=== PATIENT | male | born 1990 | race African-American/Black ===

== ENCOUNTER 2021-08-22 00:30 | Inpatient (IN) | payer MEDICAID ==
[~2021-08-22] VITALS: Ht 193 cm; Wt 95.3 kg
[2021-08-22] MEDS ORDERED: DIAZEPAM 5 MG/ML 2ML CPJ IV ONE (01:00)
[2021-08-22] MEDS ORDERED: FOLIC ACID 1 MG, THIAMINE HCL 100 MG, MVI, ADULT NO.1 10 ML in DEXTROSE 5% WATER 1,000 ML IV ONE (01:00)
[2021-08-22 01:39] LABS: BASOPHILS % 0.7 % (0.0-2.0); EOSINOPHILS % 1.5 % (0.0-5.0); HEMATOCRIT. 44.3 % (42.0-52.0); HEMOGLOBIN. 14.4 g/dL (14.0-18.0); LYMPHOCYTES % 24.5 % (20.0-50.0); MEAN CORPUSCULAR HEMOGLOBIN 24.1 pg (28.0-32.0); MEAN CORPUSCULAR VOLUME 73.9 fL (80.0-94.0); MEAN PLATELET VOLUME 8.9 fl (7.4-10.4); MONOCYTES % 6.5 % (2.0-8.0); NEUTROPHILS % 66.8 % (40.0-76.0); PLATELET 108 x1000/uL (130-400); RED BLOOD CELL COUNT 5.99 mill/uL (4.7-6.1); RED CELL DISTRIBUTION WIDTH 15.4 % (11.6-14.6)
[2021-08-22 01:46] LABS: CHLORIDE 103 mEq/L (98-107)
[2021-08-22 01:54] LABS: CREATINE KINASE 530 IU/L (39-308)
[2021-08-22 01:55] LABS: ETHANOL BLOOD < 10 mg/dL; PHOSPHORUS 3.3 mg/dL (2.5-4.9)
[2021-08-22] MEDS ORDERED: DIAZEPAM 5 MG/ML 2ML CPJ IV NR (02:00)
[2021-08-22 02:40] LABS: CLARITY URINE CLEAR (CLEAR); COLOR URINE YELLOW (YELLOW); KETONES URINE 1+ (NEGATIVE); LEUKOCYTE ESTERASE URINE NEGATIVE (NEGATIVE); NITRITE URINE NEGATIVE (NEGATIVE); OCCULT BLOOD URINE NEGATIVE (NEGATIVE); PH URINE 6.5 (4.5-8.0); PROTEIN URINE NEGATIVE (NEGATIVE); SPECIFIC GRAVITY URINE 1.011 (1.005-1.030); UROBILINOGEN URINE 0.2 E.U./dL (0.2-1.0)
[2021-08-22 02:52] LABS: *AMPHETAMINES SCREEN URINE NEGATIVE (NEGATIVE); *BARBITURATES SCREEN URINE NEGATIVE (NEGATIVE); *BENZODIAZEPINES SCREEN URINE NEGATIVE (NEGATIVE); *COCAINE SCREEN URINE NEGATIVE (NEGATIVE)
[2021-08-22 02:53] LABS: CANNABINOID URINE SCREEN NEGATIVE (NEGATIVE); METHADONE URINE SCREEN NEGATIVE (NEGATIVE); OPIATES URINE SCREEN NEGATIVE (NEGATIVE); PHENCYCLIDINE URINE SCREEN NEGATIVE (NEGATIVE)
[2021-08-22 08:56] VITALS: BP 150/101
[2021-08-22 10:08] VITALS: BP 150/101
[2021-08-22] MEDS ORDERED: HYDROCODONE/ACETAMINOPHEN 5/325MG TABLET PO PRN (10:15)
[2021-08-22] MEDS ORDERED: DOCUSATE SODIUM 100MG CAPSULE PO PRN (10:15)
[2021-08-22] MEDS ORDERED: IPRATROPIUM/ALBUTEROL 0.5-3(2.5)MG/3ML NEB NEB PRN (10:15)
[2021-08-22] MEDS ORDERED: ACETAMINOPHEN 325MG TABLET PO PRN (10:15)
[2021-08-22] MEDS ORDERED: ONDANSETRON HCL 4MG/2ML INJ IV PRN (10:15)
[2021-08-22] MEDS ORDERED: MAGNESIUM/ALUMINUM HYDROXIDE/SIMETHICONE 30ML UDC PO PRN (10:15)
[2021-08-22] MEDS ORDERED: NA PHOS,M-B/NA PHOS,DI-BA ENEMA 118ML PR PRN (10:15)
[2021-08-22] MEDS ORDERED: MORPHINE SULFATE 2 MG/ML CPJ (NOT FOR IM USE) IV PRN (10:15)
[2021-08-22] MEDS ORDERED: DIPHENHYDRAMINE 50MG/ML VIAL IV PRN (10:15)
[2021-08-22] MEDS ORDERED: GUAIFENESIN 200MG/10ML SUGAR FREE UDC PO PRN (10:15)
[2021-08-22] MEDS: CLONIDINE 0.1MG TABLET PO PRN (10:34)
[2021-08-22] MEDS: ENOXAPARIN 40MG/0.4ML SYR SUBCUT SCH (10:36)
[2021-08-22] MEDS: DEXT 5%/0.45% NACL 1000ML 1,000 ML IV SCH ×2 (10:59→20:58)
[2021-08-22 12:00] VITALS: BP 143/102
[2021-08-22] MEDS: LORAZEPAM 2MG/ML CPJ IV PRN ×2 (14:00→21:03)
[2021-08-22] MEDS ORDERED: NALOXONE HCL 0.4MG/ML VIAL IV PRN (15:45)
[2021-08-22 16:00] VITALS: BP 105/70
[2021-08-22 20:00] VITALS: BP 139/91
[2021-08-23] VITALS: BP 135/82
[2021-08-23 04:00] VITALS: BP 143/99
[2021-08-23 05:57] LABS: BASOPHILS % 1.1 % (0.0-2.0); EOSINOPHILS % 2.6 % (0.0-5.0); HEMATOCRIT. 44.5 % (42.0-52.0); HEMOGLOBIN. 14.1 g/dL (14.0-18.0); LYMPHOCYTES % 29.5 % (20.0-50.0); MEAN CORPUSCULAR HEMOGLOBIN 23.6 pg (28.0-32.0); MEAN CORPUSCULAR VOLUME 74.6 fL (80.0-94.0); MEAN PLATELET VOLUME 10.2 fl (7.4-10.4); MONOCYTES % 7.5 % (2.0-8.0); NEUTROPHILS % 59.3 % (40.0-76.0); PLATELET 94 x1000/uL (130-400); RED BLOOD CELL COUNT 5.96 mill/uL (4.7-6.1); RED CELL DISTRIBUTION WIDTH 15.9 % (11.6-14.6)
[2021-08-23] MEDS: DEXT 5%/0.45% NACL 1000ML 1,000 ML IV SCH (06:09)
[2021-08-23 06:16] LABS: CHLORIDE 108 mEq/L (98-107)
[2021-08-23 08:00] VITALS: BP 149/110
[2021-08-23] MEDS: ENOXAPARIN 40MG/0.4ML SYR SUBCUT SCH (09:00)
[2021-08-23] MEDS ORDERED: ASPIRIN 81MG EC TABLET PO SCH (09:00)
[2021-08-23] MEDS: CLONIDINE 0.1MG TABLET PO PRN (09:23)
[2021-08-23 12:00] VITALS: BP 137/99
[2021-08-23 12:08] VITALS: BP 137/99
== END 2021-08-23 13:35 | disposition home or self-care (01) | DRG 775 ==
LOC: EDBD → ER 00:30 → 6WST 04:13 → ENRESERV 04:35
PROVIDERS: ADMIT Internal Medicine; ATTEND Internal Medicine
DX: F10.131 Alcohol abuse with withdrawal delirium (principal); D64.9 Anemia, unspecified; Y90.9 Presence of alcohol in blood, level not specified; E86.0 Dehydration; Z88.2 Allergy status to sulfonamides; Z87.891 Personal history of nicotine dependence
CPT/HCPCS: 36415; 71045; 80053; 80076; 80305; 80307; 80320; 80329; 81003; 82248; 82550; 83735; 84100; 84484; 85025; 93005; 99285; J1650; J2060; J3411; J3490; J7070; G0480

== ENCOUNTER 2021-08-30 16:24 | Emergency (ER) | payer MEDICAID ==
[~2021-08-30] VITALS: Ht 193 cm; Wt 91.0 kg
[2021-08-30 19:57] VITALS: BP 131/94
[2021-08-30 21:17] LABS: BASOPHILS % 0.6 % (0.0-2.0); EOSINOPHILS % 1.1 % (0.0-5.0); LYMPHOCYTES % 39.2 % (20.0-50.0); MEAN CORPUSCULAR HEMOGLOBIN 23.7 pg (28.0-32.0); MEAN PLATELET VOLUME 8.2 fl (7.4-10.4); MONOCYTES % 14.9 % (2.0-8.0); NEUTROPHILS % 44.2 % (40.0-76.0); PLATELET 196 x1000/uL (130-400); RED BLOOD CELL COUNT 5.91 mill/uL (4.7-6.1); RED CELL DISTRIBUTION WIDTH 17.3 % (11.6-14.6)
[2021-08-30 21:31] LABS: CHLORIDE 108 mEq/L (98-107)
== END 2021-08-30 22:02 | disposition home or self-care (01) ==
LOC: ER 16:24 → EDBD 16:24 → ER 22:02
DX: F10.10 Alcohol abuse, uncomplicated (principal); Y90.9 Presence of alcohol in blood, level not specified
CPT/HCPCS: 36415; 80053; 85025; 99283

== ENCOUNTER 2022-01-14 23:07 | Emergency (ER) | payer BC, MEDICAID ==
[~2022-01-14] VITALS: Ht 193 cm; Wt 91.4 kg
[2022-01-14 23:45] LABS: BASOPHILS % 0.5 % (0.0-2.0); EOSINOPHILS % 0.5 % (0.0-5.0); HEMATOCRIT. 44.4 % (42.0-52.0); HEMOGLOBIN. 14.4 g/dL (14.0-18.0); LYMPHOCYTES % 14.8 % (20.0-50.0); MEAN CORPUSCULAR HEMOGLOBIN 22.8 pg (28.0-32.0); MEAN CORPUSCULAR VOLUME 70.6 fL (80.0-94.0); MEAN PLATELET VOLUME 8.5 fl (7.4-10.4); MONOCYTES % 3.6 % (2.0-8.0); NEUTROPHILS % 80.6 % (40.0-76.0); PLATELET 100 x1000/uL (130-400); RED BLOOD CELL COUNT 6.28 mill/uL (4.7-6.1); RED CELL DISTRIBUTION WIDTH 15.6 % (11.6-14.6)
[2022-01-14 23:56] LABS: CHLORIDE 104 mEq/L (98-107)
[2022-01-15] LABS: ETHANOL BLOOD < 10 mg/dL
[2022-01-15] MEDS ORDERED: IBUPROFEN 600MG TABLET PO STA (01:09)
[2022-01-15 01:17] VITALS: BP 140/97
[2022-01-15] MEDS ORDERED: IBUP-2029 PO (03:32)
== END 2022-01-15 03:40 | disposition home or self-care (01) ==
LOC: EDBD 23:07 → ER 23:07
DX: R07.89 Other chest pain (principal); R50.9 Fever, unspecified; R74.02 Elevation of levels of lactic acid dehydrogenase [LDH]
CPT/HCPCS: 36415; 71045; 80053; 80320; 84484; 85025; 93005; 99285; G0480

== ENCOUNTER 2022-03-09 17:40 | Emergency (ER) | payer BC, MEDICAID ==
[~2022-03-09] VITALS: Ht 180.3 cm; Wt 86.0 kg
[~2022-03-09 17:40] MED LIST: IBUP-2029 PO
[2022-03-09 17:50] VITALS: BP 143/93
== END 2022-03-09 20:00 | disposition left against medical advice (07) ==
LOC: ER 17:40
DX: F10.229 Alcohol dependence with intoxication, unspecified (principal); Y90.0 Blood alcohol level of less than 20 mg/100 ml; Z88.2 Allergy status to sulfonamides
CPT/HCPCS: 99283

== ENCOUNTER 2022-10-21 16:28 | Emergency (ER) | payer BC, MEDICAID ==
[~2022-10-21] VITALS: Ht 190.5 cm; Wt 64.0 kg
[2022-10-21 17:37] LABS: BASOPHILS % 0.4 % (0.0-2.0); EOSINOPHILS % 0.2 % (0.0-5.0); HEMATOCRIT. 44.1 % (42.0-52.0); HEMOGLOBIN. 14.2 g/dL (14.0-18.0); LYMPHOCYTES % 59.8 % (20.0-50.0); MEAN CORPUSCULAR HEMOGLOBIN 24.1 pg (28.0-32.0); MEAN CORPUSCULAR VOLUME 74.9 fL (80.0-94.0); MEAN PLATELET VOLUME 7.4 fl (7.4-10.4); MONOCYTES % 8.5 % (2.0-8.0); NEUTROPHILS % 31.1 % (40.0-76.0); PLATELET 209 x1000/uL (130-400); RED CELL DISTRIBUTION WIDTH 15.9 % (11.6-14.6)
[2022-10-21 17:43] LABS: CHLORIDE 108 mEq/L (98-107)
[2022-10-21 17:55] LABS: ETHANOL BLOOD 463 mg/dL
[2022-10-21 19:41] VITALS: BP 118/68
== END 2022-10-21 19:45 | disposition home or self-care (01) ==
LOC: ER 16:28
DX: T51.0X1A Toxic effect of ethanol, accidental (unintentional), initial encounter (principal); I10 Essential (primary) hypertension; Z88.2 Allergy status to sulfonamides
CPT/HCPCS: 36415; 80053; 80320; 85025; 93005; 99284; G0480

== ENCOUNTER 2023-01-14 22:33 | Emergency (ER) | payer BC, MEDICAID ==
[~2023-01-14] VITALS: Ht 193 cm; Wt 93.0 kg
[2023-01-14 22:35] VITALS: BP 127/96
[2023-01-14] MEDS ORDERED: ONDANSETRON HCL 4MG/2ML INJ IV STA (23:22)
[2023-01-14] MEDS ORDERED: SODIUM CHLORIDE 0.9% 1,000 ML IV ONE (23:30)
[2023-01-14] MEDS ORDERED: IBUPROFEN 400MG TABLET PO ONE (23:30)
[2023-01-15 01:12] LABS: BASOPHILS % 0.4 % (0.0-2.0); EOSINOPHILS % 0.2 % (0.0-5.0); HEMATOCRIT. 44.9 % (42.0-52.0); HEMOGLOBIN. 14.6 g/dL (14.0-18.0); LYMPHOCYTES % 43.5 % (20.0-50.0); MEAN CORPUSCULAR HEMOGLOBIN 23.8 pg (28.0-32.0); MEAN CORPUSCULAR VOLUME 73.2 fL (80.0-94.0); MEAN PLATELET VOLUME 7.5 fl (7.4-10.4); NEUTROPHILS % 49.9 % (40.0-76.0); PLATELET 206 x1000/uL (130-400); RED BLOOD CELL COUNT 6.13 mill/uL (4.7-6.1); RED CELL DISTRIBUTION WIDTH 15.5 % (11.6-14.6)
[2023-01-15 01:29] LABS: CHLORIDE 104 mEq/L (98-107)
[2023-01-15 01:38] LABS: ETHANOL BLOOD 283 mg/dL
== END 2023-01-15 03:25 | disposition home or self-care (01) ==
LOC: ER 22:33
DX: F10.129 Alcohol abuse with intoxication, unspecified (principal); M79.605 Pain in left leg; I10 Essential (primary) hypertension; Z88.6 Allergy status to analgesic agent; Z98.890 Other specified postprocedural states; Y90.8 Blood alcohol level of 240 mg/100 ml or more
CPT/HCPCS: 36415; 73590; 80053; 80320; 82962; 85025; 93971; 96361; 96374; 99285; J2405; J7030; Z7610; G0480

== ENCOUNTER 2023-11-20 23:37 | Emergency (ER) | payer BC, MEDICAID ==
[~2023-11-20] VITALS: Ht 193 cm; Wt 93.0 kg
[2023-11-20 23:43] VITALS: TEMP 98.4; O2SAT 99
[2023-11-21 00:21] LABS: BASOPHILS % 0.4 % (0.0-2.0); DIFFERENTIAL COMMENT 0; EOSINOPHILS % 0.1 % (0.0-5.0); HEMATOCRIT. 45.4 % (42.0-52.0); HEMOGLOBIN. 14.5 g/dL (14.0-18.0); LYMPHOCYTES % 24.1 % (20.0-50.0); MEAN CORPUSCULAR HEMOGLOBIN 23.3 pg (28.0-32.0); MEAN PLATELET VOLUME 8.4 fl (7.4-10.4); MONOCYTES % 5.7 % (2.0-8.0); NEUTROPHILS % 69.7 % (40.0-76.0); PLATELET 129 x1000/uL (130-400); RED BLOOD CELL COUNT 6.22 mill/uL (4.7-6.1); RED CELL DISTRIBUTION WIDTH 15.4 % (11.6-14.6); WHITE BLOOD COUNT 5.8 x1000/uL (4.5-11.0)
[2023-11-21 00:35] LABS: ALANINE AMINOTRANSFERASE 30 IU/L (10-49); ALBUMIN 4.8 g/dL (3.2-4.8); ASPARTATE AMINOTRANSFERASE 48 IU/L (<34); BILIRUBIN TOTAL 1.1 mg/dL (0.1-1.0); CALCIUM 9.4 mg/dL (8.7-10.4); CARBON DIOXIDE 25 mEq/L (21-32); CHLORIDE 93 mEq/L (98-107); CREATININE 1.1 mg/dL (0.6-1.3); ETHANOL BLOOD 143 mg/dL (<10); GLUCOSE 76 mg/dL (70-105); POTASSIUM 3.9 mEq/L (3.5-5.1); SODIUM 131 mEq/L (136-145); UREA NITROGEN BLOOD 12 mg/dL (9-23)
[2023-11-21 04:00] VITALS: BP 155/94; PULSE 108; RESP 16
[2023-11-21] MEDS: HYDROCODONE/ACETAMINOPHEN 5/325MG TABLET PO ONE (04:00)
[2023-11-21] MEDS: LORAZEPAM 1MG TABLET PO ONE (04:00)
[2023-11-21] MEDS ORDERED: ALPR1TAB2 MT (04:54)
[2023-11-21] MEDS ORDERED: CIPHCO LEFT EAR (04:54)
[2023-11-21] MEDS ORDERED: IBUP-2029 MT (04:54)
== END 2023-11-21 05:46 | disposition home or self-care (01) ==
LOC: ER 23:37
DX: F10.239 Alcohol dependence with withdrawal, unspecified (principal); H60.92 Unspecified otitis externa, left ear; Z98.890 Other specified postprocedural states; Y90.6 Blood alcohol level of 120-199 mg/100 ml
CPT/HCPCS: 36415; 80053; 80320; 85025; 99283; G0480